=== PATIENT | female | born 1955 | race Caucasian/White ===

== ENCOUNTER → 2018-07-17 10:08 | Outpatient (CLI) | payer OTHER, SELFPAY ==
[2018-07-17 11:02] LABS: Hemoglobin A1c 6.3 % (4.2-6.3)
[2018-07-17 11:16] LABS: Progesterone Level 0.31 ng/mL (See Comment)
[2018-07-17 11:19] LABS: Estradiol < 11.0 pg/mL; T4 Free Direct 0.96 ng/dL (0.76-1.46); Thyroid Stim Hormone (TSH) 0.29 uIU/mL (0.358-3.74)
[2018-07-18 09:56] LABS: DHEA Sulfate 122.5 ug/dL (29.4-220.5)
--- OUTSIDE RECORDS SUMMARY | 2018-09-21 04:21 | XMS RPT_ITS ---
:1955 Author Organization OHIP Care Team Providers Name Role Phone Mikaela Waite Attending Unavailable JOSE FOY Attending Unavailable RELL ORTEGA (KEVIN) Referring Unavailable CHAVOVANNESSA (VIKTORIA) Attending Unavailable USANEGRITA Sheth (DANETTE) Attending Unavailable DARCIE VALENTINO Referring Unavailable VANNESSA TONY (VIKTORIA) Attending Unavailable DEANNA MARQUES Admitting Unavailable DEANNA MARQUES Attending Unavailable PROBLEMS PROBLEMS DATE TYPE CONDITION / CODE ATTENDING STATUS SOURCE 07/17/2018 Unknown N95.1 - Menopausal Mikaela Waite Active [place] and female Community climacteric states / Hospital N95.1(ICD-10) Repository 02/14/2018 Active Prediabetes / CHAVO, Active [facility] R73.03(ICD-10) VANNESSA () Clinic Main [place] Repository 02/21/2018 Active Elevated C-reactive CHAVO, Active [facility] protein (CRP) / VANNESSA () Clinic Main R79.82(ICD-10) [place] Repository 02/06/2018 Active Overweight / NA Active [facility] E66.3(ICD-10) Clinic Main [place] Repository 02/06/2018 Active Other fatigue / NA Active [facility] R53.83(ICD-10) [facility] Main [place] Repository 02/06/2018 Active Pain in unspecified NA Active [facility] joint / [facility] M25.50(ICD-10) [place] Repository 02/06/2018 Active Elevated NA Active [facility] blood-pressure [facility] Main reading, without [place] diagnosis of Repository hypertension / R03.0(ICD-10) 01/31/2018 Active Other abnormal CHAVO, Active [facility] glucose / VANNESSA () Clinic Main R73.09(ICD-10) [place] Repository 01/31/2018 Active Other specified CHAVO, Active [place] abnormal findings of VANNESSA () Clinic Main blood chemistry / [place] R79.89(ICD-10) Repository 12/21/2017 Active Dermatochalasis of LOCASTRO, Active [place] right upper eyelid / [facility] Other H02.831(ICD-10) [place] Repository 12/21/2017 Active Dermatochalasis of LOCASTRO, Active [place] left upper eyelid / [facility] Other H02.834(ICD-10) [place] Repository PROCEDURES PROCEDURES No Procedure Records FoundRESULTS RESULTS HEMOGLOBIN A1C Collected: 07/17/2018 Status: F Source: [place] 10:12 AM [facility] REPOSITORY TYPE CODE TESTS RESULT OUT OF RANGE REFERENCE UNITS LAB L501.9985 4.2-6.3 % Normal HGB A1C 6.3 Performed By: #### L501.9985 #### [facility] [address] [place], [place], [id number] TESTOSTERONE, SERUM TOTAL Collected: 07/17/2018 Status: F Source: [place] 10:12 AM [facility] REPOSITORY TYPE CODE TESTS RESULT OUT OF REFERENCE UNITS RANGE LAB L509.3000 ng/dL Testosterone Normal 14.38 Result Comment: NORMAL REFERENCE RANGES MALE AGE <50 123.06 - 813.86 ng/dL MALE AGE >50 89.98 - 780.10 ng/dL FEMALE PREMENOPAUSE AGE 21 - 60 9.01 - 47.94 ng/dL FEMALE POSTMENOPAUSE AGE 45 - 89 <7.00 - 45.62 ng/dL REFERENCE RANGE AND METHODOLOGY CHANGED 06/20/2017 Performed By: #### L509.3000, L509.4001, L509.6000 #### [facility] [address] [place], [place], [id number] PROGESTERONE LEVEL Collected: 07/17/2018 Status: F Source: [place] 10:12 AM [facility] REPOSITORY TYPE CODE TESTS RESULT OUT OF REFERENCE UNITS RANGE LAB L509.4001 See Comment ng/mL Progesterone Normal 0.31 Result Comment: Progesterone Reference Table: UNITS Female: Follicular 0.15 - 1.40 ng/mL Luteal 3.34 - 25.56 ng/mL Mid-luteal 4.44 - 28.03 ng/mL Postmenopausal 0.0 - 0.73 ng/mL : 1st Trimester 11.22 - 90.00 ng/mL 2nd Trimester 25.55 - 89.40 ng/mL 3rd Trimester 48.40 -422.50 ng/mL Performed By: #### L509.3000, L509.4001, L509.6000 #### [facility] [address] [place], [address] CORTISOL SERUM Collected: 07/17/2018 Status: F Source: [place] 10:12 AM [facility] REPOSITORY TYPE CODE TESTS RESULT OUT OF RANGE REFERENCE UNITS LAB L509.6000 3.09-22.40 ug/dL Normal CORTISOL 16.10 Result Comment: Adult (AM) 4.30 - 22.40 ug/dL Adult (PM) 3.09 - 16.66 ug/dL Performed By: #### L509.3000, L509.4001, L509.6000 #### [facility] [place], [address] FREE T3 Collected: 07/17/2018 Status: F Source: [place] 10:12 AM [facility] REPOSITORY TYPE CODE TESTS RESULT OUT OF RANGE REFERENCE UNITS LAB L501.74900 2.18-3.98 pg/mL Normal FREE T3 3.0 Performed By: #### L501.37729, L501.9520, L506.0400, L3300.1750 #### [facility] [address] [place], [address] THYROID STIM HORMONE Collected: 07/17/2018 Status: F Source: [place] (TSH) 10:12 AM [facility] REPOSITORY TYPE CODE TESTS RESULT OUT OF RANGE REFERENCE UNITS LAB L501.9520 0.358-3.74 uIU/mL Low TSH 0.29 Performed By: #### L501.33668, L501.9520, L506.0400, L3300.1750 #### [facility] [address] [place], [address] T4 FREE DIRECT Collected: 07/17/2018 Status: F Source: [place] 10:12 AM [facility] REPOSITORY TYPE CODE TESTS RESULT OUT OF RANGE REFERENCE UNITS LAB L506.0400 0.76-1.46 ng/dL Normal T4 FREE 0.96 DIRECT Performed By: #### L501.00726, L501.9520, L506.0400, L3300.1750 #### [facility] [address] [place], [place], [address] ESTRADIOL Collected: 07/17/2018 Status: F Source: [place] 10:12 AM [facility] REPOSITORY TYPE CODE TESTS RESULT OUT OF RANGE REFERENCE UNITS LAB L3300.1750 pg/mL Normal ESTRADIOL < 11.0 Result Comment: NORMAL REFERENCE RANGES FEMALE FOLLICULAR 21.4 - 164.8 pg/mL MID-CYCLE PEAK 49.9 - 367.2 pg/mL LUTEAL 40.2 - 259.0 pg/mL POST-MENOPAUSAL ON MHT <11.0 - 462.1 pg/mL NOT ON MHT <11.0 - 58.3 pg/mL MALE <11.0 - 52.5 pg/mL NOTE: [facility] HAS CONFIRMED THE DRUG FULVETRANT (FASLODEX) MAY CAUSE FALSELY ELEVATED ESTRADIOL RESULTS WHEN USING THIS TEST METHOD. IF PATIENT IS TAKING FULVESTRANT AN ALTERNATIVE METHOD SHOULD BE USED TO DETERMINE ESTRADIOL CONCENTRATION. Performed By: #### L501.33373, L501.9520, L506.0400, L3300.1750 #### [facility] [address] [place], [place], [address] DHEA SULFATE Collected: 07/17/2018 Status: F Source: [place] 10:12 AM [facility] REPOSITORY Order Comment: Has Patient had Radioactive Injection for X-ray?: N TYPE CODE TESTS RESULT OUT OF RANGE REFERENCE UNITS LAB L3300.1500 29.4-220.5 ug/dL Normal DHEA SULF 122.5 4020 Result Comment: Performed at: [facility] [id number] Assisted Sales Representative: Olu Moore PhD, Phone: [phone] Performed By: #### L3300.1500 #### [facility] (refer to report for specific site) refer to report for address and phone number OFFICE VISIT (INTERNAL Observed: 06/04/2018 Status: UNK Source: [facility]) 2:23 PM HOSPITALS REPOSITORY Chief Complaint Visit For: Other pt c/o dry cough, SOB. map History of Present Illness Vera Goodman is a 63 yo female who presents to the outpatient office today for evaluation of a nonproductive cough and shortness of breath. [place] automated prescription reporting service report was reviewed and the patient is compliant. The patient reports the development of upper respiratory symptoms beginning a few weeks ago including constant chest tightness, predominately non-productive cough and when productive productive of clear sputum, constant shortness of breath, nasal congestion with clear nasal discharge, post-nasal drip, and intermittent sneezing. She reports anosmia and angeusia over the past week. The patient reports n o other associated symptoms. She denies nausea, vomiting, diarrhea, and decreased appetite. The patient reports no other new complaints today. Review of Systems All systems have been reviewed and are normal except as previously noted. Active Problems Anxiety (300.00) (F41.9) Chest pain (786.50) (R07.9) Added by Problem List Migration; 2012-09-10; Moved to [facility] May 28 2013 9:08PM Cough (786.2) (R05) Left-sided weakness (728.87) (R53.1) Palpitations (785.1) (R00.2) Sinusitis (473.9) (J32.9) Tracheobronchitis (490) (J40) Allergies Amoxicillin TABS Recorded By: Phillip Vásquez; 05/26/2013 10:05:47 PM Current Meds LORazepam 0.5 MG Oral Tablet; TAKE 1 TABLET Daily prn; Therapy: 01Jul2013 to (Evaluate:05Jun2018) Requested for: 21May2018; Last Rx:21May2018 Ordered Rx By: Phillip Vásquez; Dispense: 15 Days ; #:15 Tablet; Refill: 0;For: Anxiety; ARJUN = N; Print Rx; Msg to Pharmacy: PT NEEDS OFFICE VISIT ZyrTEC Allergy 10 MG Oral Tablet; TAKE 1 TABLET AT BEDTIME; Therapy: 01Jul2013 to Recorded Rx By: Phillip Vásquez; Dispense: 0 Days ; #: Sufficient Tablet; Refill: 0; ARJUN = N; Record Vitals Vital Signs Recorded: [id number] 01:56PM [id number] lb 0.6 oz BMI Fntskmzaye36.41 BSA Calculated1.65 CA 68 bpm, left radial a., patient seated. BP 110/80 mm Hg, left arm, patient seated. Physical Exam Head - palpation revealed mild tenderness over the right maxillary sinus Nose - turbinates not erythematous or swollen, no septal deviation noted Mouth - posterior pharynx is not erythematous or swollen. Tonsillar pillars appeared normal no exudates Neck - no lymphadenopathy. Lungs - clear to auscultation bilaterally Cardiac - rate normal, rhythm regular, no murmurs, no JVD Musculoskeletal Chest- No erythema or swelling, full range of motion with no increase in patient's chest tightness or chest pain, palpation did not increase the patient's chest tightness and did not increase chest pain,; no increase in warmth. Diagnoses/Problems Cough (786.2) (R05) Orders Cough Renew: Benzonatate 100 MG Oral Capsule (Tesjames Navarro); TAKE 1 CAPSULE EVERY 6 HOURS NEEDED Rx By: Phillip Vásquez; Dispense: 8 Days ; #:30 Capsule; Refill: 1;For: Cough; ARJUN = N; Verified Transmission to [facility]; Last Updated By: [employer]; 06/04/2018 2:19:39 PM Renew: ProAir HFA 108 (90 Base) MCG/ACT Inhalation Aerosol Solution; INHALE 2 PUFFS EVERY 4 TO 6 HOURS NEEDED FOR SHORTNESS OF BREATH ORAS NEEDED Rx By: Phillip Vásquez; Dispense: 0 Days ; #:1 X 8.5 GM Inhaler; Refill: 1;For: Cough; ARJUN = N; Verified Transmission to [facility]; Last Updated By: [employer]; 06/04/2018 2:19:38 PM Sinusitis, Tracheobronchitis Renew: Doxycycline Monohydrate 100 MG Oral Tablet; TAKE 1 TABLET TWICE DAILY Rx By: Phillip Vásquez; Dispense: 10 Days ; #:20 Tablet; Refill: 0;For: Sinusitis, Tracheobronchitis; ARJUN = N; Verified Transmission to [facility]; Last Updated By: [employer]; 06/04/2018 2:19:39 PM Provider Impressions Constant chest tightness, constant shortness of breath-may be secondary to bronchospasm secondary to viral syndrome, sinusitis Predominantly nonproductive cough, nasal congestion, rhinorrhea, postnasal drip, intermittent sneezing-may be secondary to viral syndrome, sinusitis. Anosmia and and juicy a-may be secondary to viral syndrome, sinusitis. Plan Obtain pulse ox on room air today. If pulse ox is satisfactory, I will prescribe a pro-air HFA inhaler 2 puffs every 6 hours when necessary. I will start the patient on doxycycline at a dose of 100 mg by mouth twice a day 10 days. I asked the patient to begin use of Nasacort nasal spray 1 spray to each nostril twice a day when necessary which is to follow saline nasal spray 2 sprays to each nostril twice a day when necessary. I will prescribe Tessalon Perles to be used at a dose of 100 mg by mouth every 6 hours when necessary cough. Patient should call me in 10 days with her condition Patient Discussion/Summary By signing my name below, I, Rita Aiken, acting as a medical accountant, attest that this documentation has been prepared under the direction and in the presence of Dr. Vásquez. All medical record entries made by the scribe were at my direction and personally dictated by me. I have reviewed the chart and agree that the record accurately reflects my personal performance of the h istory, physical exam, discussion and plan. Dr. Phillip Vásquez. Signatures Electronically signed by : ARDEN Falk; Jun 04 2018 2:21PM EST (Co-author) Electronically signed by : Phillip Vásquez MD; Jun 04 2018 2:23PM EST (Author) JADE Observed: 02/21/2018 Status: COMPLETED Source: [place] 5:00 PM [facility] RE[facility]ITORY [facility] VERA GOODMAN ([id number]) 1955 F Date Time Provider Department 02/21/18 5:00 PM DARCIE VALENTINO During your visit today, we recorded the following information about you: Blood pressure Weight Height 104/60 64 kg 1.568 m Darcie Valentino DO 02/21/2018 7:54 PM Signed [facility] Shared medical appointment visit 4 CC: Vera Goodman is a 62 year old female with a PMH as stated below and a history of unhealthy eating patterns is here for the [facility] Life SMA. HPI: Vera is preparing food in advance and taking it to work along with healthy snacks. Not drinking as much coffee or alcohol. Eating less. Joint pain is still a problem. I feel better. She has stress at work- trying not to stress eat. Last 2 Encounter Wt Readings: Date: Wt: 02/21/2018 64 kg (141 lb 3.2 oz) 02/04/2018 65.6 kg (144 lb 9.6 oz) No changes in PMH and PSH since the previous visit except as stated in HPI. ALLERGIES Allergen Reactions - Codeine Rash, Itching - Penicillins Other: See Comments Makes patient feel very ill. - Percocet [Oxycodone* Other: See Comments - Sulfa (Sulfonamide * Vomiting - Tramadol Itching - Vicodin [Hydrocodon* Itching Current Outpatient Prescriptions: LORazepam (ATIVAN) 0.5 mg tab cetirizine (ZYRTEC) 10 mg tablet Take 10 mg by mouth daily at bedtime. No current facility-administered medications for this visit. No changes in FH. No changes in SH except as stated in HPI. ROS: Positive for bloating, joint pain (hands, wrists) Negative for chest pain, SOB, HAs PHYSICAL EXAM: Vitals: BP 104/60 Ht 156.8 cm (5' 1.75) Wt 64 kg (141 lb 3.2 oz) BMI 26.04 kg/m? Gen: Alert, in no apparent distress. Looks about stated age. Heart: Regular rate and rhythm without murmurs, rubs, or gallops. Lungs: Clear to auscultation. Extremities: No deformities Psych: Oriented x 3, normal affect LABS: Component Latest Ref Rng AND Units 02/06/2018 Cholesterol, Total <200 mg/dL 194 Triglyceride <150 mg/dL 68 HDL Cholesterol >39 mg/dL 76 LDL Cholesterol <100 mg/dL 104 (H) Non HDL Cholesterol <130 mg/dL 118 Fasting Time hrs 9 VLDL Cholesterol <30 mg/dL 14 TC:HDL Ratio <5.10 2.55 LDL:HDL Ratio <2.54 1.37 Hemoglobin A1C 4.3 - 5.6 % 5.9 (H) Estimated Average Glucose mg/dL 123 Insulin 1 - 24 uU/mL 5.3 UltraSens C-Reactive Protein <3.1 mg/L 5.6 (H) Vitamin D 25 Hydroxy 31.0 - 80.0 ng/mL 34.8 TSH 0.400 - 5.500 uU/mL 0.671 Vitamin B6, Plasma 20.0 - 125.0 nmol/L 95.8 Homocysteine, Serum <15.1 umol/L 7.1 Hemoglobin A1C (%) Date Value 02/06/2018 5.9 06/07/2013 5.7 ASSESSMENT and PLAN: Vera Goodman is a 62 year old female with a PMH of prediabetes and overweight who is here to address weight loss and develop a healthier relationship to food. During the next 6 weeks, Vera Goodman will work on the following goals: cut out sugar to improve arthritis in hands, cut out fast/fried/junk foods, cut out dairy. (R73.03) Prediabetes (primary encounter diagnosis) Comment: A1c increased since 2012 Plan: Limit added sweeteners and simple carbs. Recommended chromium picolinate 500 mcg daily. (R79.82) Elevated C-reactive protein (CRP) Plan: Limit pro-inflammatory foods such as saturated fat from meat and dairy, omega-6 enriched oils, and refined carbs. Avoid trans fat. Eat more anti-inflammatory foods as discussed. (E66.3) Overweight Comment: 3 lb weight loss in the past 2 weeks Plan: Start a probiotic and eat more fermented foods to improve gut health. (R79.89) Low vitamin D level Comment: goal level 40-60 Plan: Vit D3 4000 International Units daily (M25.50) Pain in joint, multiple sites Comment: hands, wrists - continuing Plan: Continue curcumin 500 mg BID for anti-inflammatory properties. Reduce added sweeteners. Lab results and recommendations reviewed with patient. DO Vannessa Zhao [facility] 03/06/2018 3:14 PM Signed I taught the mind/body portion of the [facility] Life SMA and guided the patient through the mind/body portion of the session. Patient was well engaged in the process. JORGE Alexander Referring Provider: SELF [200] Allergies As of Date: 02/21/2018 Noted Allergy Reaction CODEINE 01/10/2007 2 - Rash 9 - Itching PENICILLINS 07/09/2014 14 - Other: See Comments Comments: Makes patient feel very ill. PERCOCET (OXYCODONE-ACETAMINOPHEN)06/15/2015 14 - Other: See Comments SULFA (SULFONAMIDE ANTIBIOTICS) 06/08/2008 11 - Vomiting TRAMADOL 04/08/2015 9 - Itching VICODIN (HYDROCODONE-ACETAMINOPHE*06/08/2008 9 - Itching Date Reviewed: 02/21/2018 Reviewed by: Kareem Hardin - Fully Assessed Reason for Visit: Established Patient [175] Cmt: trim life week 4 Reason For Visit History Recorded Primary Visit Diagnosis:Prediabetes [R73.03] Other Visit Diagnoses:Elevated C-reactive protein (CRP) [R79.82] Overweight [E66.3] Low vitamin D level [R79.89] Pain in joint, multiple sites [M25.50] Prescriptions as of 02/21/2018 Sig: LORAZEPAM 0.5 MG TABLET CETIRIZINE 10 MG TABLET Take 10 mg by mouth daily at * Problem List As Of Date 02/21/2018 Noted Resolved ULNAR NERVE LESION [G56.20] INVALID FOR* INJURY ULNAR NERVE [S54.00XA] INVALID FOR* Hip pain [M25.559] INVALID FOR* 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] INVALID FOR* Trochanteric bursitis [M70.60] INVALID FOR* Shoulder pain [M25.519] INVALID FOR* Stiffness of joint, not elsewhere classified, *INVALID FOR*08/15/2013 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] INVALID FOR*08/15/2013 Pain of left upper extremity [M79.602] INVALID FOR* Dermatochalasis of both upper eyelids [H02.831,*INVALID FOR*12/21/2017 Prediabetes [R73.03] INVALID FOR* Encounter Status:Closed by DARCIE VALENTINO DO on 02/21/18 PROGRESS Observed: 02/21/2018 Status: COMPLETED Source: [place] 3:14 PM [facility] REPOSITORY HNO ID: [id number] Author: Vannessa Tony (Sw) Service: (none) Author Type: Cloth Layer Type: Progress Notes Filed: 03/06/2018 3:14 PM Note Text: I taught the mind/body portion of the [employer] Life SMA and guided the patient through the mind/body portion of the session. Patient was well engaged in the process. Laurence Tony [facility] PROGRESS Observed: 02/20/2018 Status: COMPLETED Source: [place] 1:31 PM [facility] REPOSITORY HNO ID: [id number] Author: Darcie Valentino Service: (none) Author Type: Physician Type: Progress Notes Filed: 02/21/2018 7:54 PM Note Text: [facility] Shared medical appointment visit 4 CC: Vera Goodman is a 62 year old female with a PMH as stated below and a history of unhealthy eating patterns is here for the [employer] SMA. HPI: Vera is preparing food in advance and taking it to work along with healthy snacks. Not drinking as much coffee or alcohol. Eating less. Joint pain is still a problem. I feel better. She has stress at work- trying not to stress eat. Last 2 Encounter Wt Readings: Date: Wt: 02/21/2018 64 kg (141 lb 3.2 oz) 02/04/2018 65.6 kg (144 lb 9.6 oz) No changes in PMH and PSH since the previous visit except as stated in HPI. ALLERGIES Allergen Reactions - Codeine Rash, Itching - Penicillins Other: See Comments Makes patient feel very ill. - Percocet [Oxycodone* Other: See Comments - Sulfa (Sulfonamide * Vomiting - Tramadol Itching - Vicodin [Hydrocodon* Itching Current Outpatient Prescriptions: LORazepam (ATIVAN) 0.5 mg tab cetirizine (ZYRTEC) 10 mg tablet Take 10 mg by mouth daily at bedtime. No current facility-administered medications for this visit. No changes in FH. No changes in SH except as stated in HPI. ROS: Positive for bloating, joint pain (hands, wrists) Negative for chest pain, SOB, HAs PHYSICAL EXAM: Vitals: BP 104/60 Ht 156.8 cm (5' 1.75) Wt 64 kg (141 lb 3.2 oz) BMI 26.04 kg/m? Gen: Alert, in no apparent distress. Looks about stated age. Heart: Regular rate and rhythm without murmurs, rubs, or gallops. Lungs: Clear to auscultation. Extremities: No deformities Psych: Oriented x 3, normal affect LABS: Component Latest Ref Rng AND Units 02/06/2018 Cholesterol, Total <200 mg/dL 194 Triglyceride <150 mg/dL 68 HDL Cholesterol >39 mg/dL 76 LDL Cholesterol <100 mg/dL 104 (H) Non HDL Cholesterol <130 mg/dL 118 Fasting Time hrs 9 VLDL Cholesterol <30 mg/dL 14 TC:HDL Ratio <5.10 2.55 LDL:HDL Ratio <2.54 1.37 Hemoglobin A1C 4.3 - 5.6 % 5.9 (H) Estimated Average Glucose mg/dL 123 Insulin 1 - 24 uU/mL 5.3 UltraSens C-Reactive Protein <3.1 mg/L 5.6 (H) Vitamin D 25 Hydroxy 31.0 - 80.0 ng/mL 34.8 TSH 0.400 - 5.500 uU/mL 0.671 Vitamin B6, Plasma 20.0 - 125.0 nmol/L 95.8 Homocysteine, Serum <15.1 umol/L 7.1 Hemoglobin A1C (%) Date Value 02/06/2018 5.9 06/07/2013 5.7 ASSESSMENT and PLAN: Vera Goodman is a 62 year old female with a PMH of prediabetes and overweight who is here to address weight loss and develop a healthier relationship to food. During the next 6 weeks, Vera Goodman will work on the following goals: cut out sugar to improve arthritis in hands, cut out fast/fried/junk foods, cut out dairy. (R73.03) Prediabetes (primary encounter diagnosis) Comment: A1c increased since 2012 Plan: Limit added sweeteners and simple carbs. Recommended chromium picolinate 500 mcg daily. (R79.82) Elevated C-reactive protein (CRP) Plan: Limit pro-inflammatory foods such as saturated fat from meat and dairy, omega-6 enriched oils, and refined carbs. Avoid trans fat. Eat more anti-inflammatory foods as discussed. (E66.3) Overweight Comment: 3 lb weight loss in the past 2 weeks Plan: Start a probiotic and eat more fermented foods to improve gut health. (R79.89) Low vitamin D level Comment: goal level 40-60 Plan: Vit D3 4000 International Units daily (M25.50) Pain in joint, multiple sites Comment: hands, wrists - continuing Plan: Continue curcumin 500 mg BID for anti-inflammatory properties. Reduce added sweeteners. Lab results and recommendations reviewed with patient. Darcie Valentino DO PROGRESS Observed: 02/14/2018 Status: COMPLETED Source: [place] 6:25 PM [facility] REPOSITORY HNO ID: [id number] Author: Vannessa Tony (Sw) Service: (none) Author Type: Cloth Layer Type: Progress Notes Filed: 02/14/2018 6:25 PM Note Text: I taught the mind/body portion of the [employer] Life SMA and guided the patient through the mind/body portion of the session. Patient was well engaged in the process. Laurence Tony [facility] COMP METABOLIC PANEL Collected: 02/06/2018 Status: F Source: [place] 7:05 AM [facility] REPOSITORY TYPE CODE TESTS RESULT OUT OF REFERENCE UNITS RANGE LAB TP 6.3-8.0 g/dL Protein, Total 7.1 LAB ALB 3.9-4.9 g/dL Albumin 4.3 LAB CA 8.5-10.2 mg/dL Calcium, Total 9.0 LAB TBIL 0.2-1.3 mg/dL Bilirubin, Total 0.6 LAB ALKP 32-117 U/L Alkaline Phosphatase 73 LAB AST 13-35 U/L AST 19 LAB GLU 74-99 mg/dL Glucose 91 Result Comment: The [place] [employer] (ADA) provides guidance for cutoff values for fasting glucose and random glucose. The ADA defines fasting as no caloric intake for at least 8 hours. Fas ting plasma glucose results between 100 to 125 mg/dL indicate increased risk for diabetes (prediabetes). Fasting plasma glucose results greater than or equal to 126 mg/dL meet the criteria for diagnosis of diabetes. In the absence of unequivocal hyperglycemia, results should be confirmed by repeat testing. In a patient with classic symptoms of hyperglycemia or hyperglycemic crisis, random plasma glucose results greater than or equal to 200 mg/dL meet the criteria for diagnosis of diabetes. Reference: Standards of Medical Care in Diabetes 2016, [place] [employer] Association. Diabetes Care. 2016.39(Suppl 1). LAB BUN 7-21 mg/dL BUN 16 LAB CRET 0.58-0.96 mg/dL Creatinine 0.77 LAB NA 136-144 mmol/L Sodium 141 LAB K 3.7-5.1 mmol/L Potassium 4.0 LAB CL 97-105 mmol/L Chloride 102 LAB CO2 22-30 mmol/L CO2 26 LAB AGAP 9-18 mmol/L Anion Gap 13 LAB ALT 7-38 U/L ALT 14 LAB GFRAA eGFR- Amer. >60 LAB GFRNAA . eGFR-All Other Races >60 Result Comment: eGFR (Estimated GFR) Units of measure: mL/min/1.73 meters squared eGFR is derived from the reexpressed MDRD Study equation using the following parameters: serum creatinine, age, gender and race. The creatinine assay has been calibrated to be traceable to IDMS. An eGFR <60 mL/min/1.73m2 for >3 months is consistent with chronic kidney disease. Refer to KDOQI guidelines for clinical interpretation. In patients with unstable renal function, e.g. those with acute kidney injury, the eGFR may not accurately reflect actual GFR. Performed By: #### CMP #### [facility] [address] [place] [address] #### HBA1C, HSCRP, HOMCYS, TSH, INSULN, VITD #### [place] [id number] [place] [phone] #### LIPB #### [facility] [address] [place], [place] [address] [place] [phone] #### VITB6 #### [facility] [address] [place] [address] [phone] HEMOGLOBIN A1C Collected: 02/06/2018 Status: F Source: [place] 7:05 AM [facility] REPOSITORY TYPE CODE TESTS RESULT OUT OF REFERENCE UNITS RANGE LAB HGBA1C 4.3-5.6 % High Hemoglobin A1c 5.9 LAB HBA0 mg/dL Est. Average Glucose 123 Result Comment: eAG: (Estimated average glucose) is a calculated value from HgbA1c and is account services representative of the average blood glucose level in the last 2-3 month period. Performed By: #### CMP #### [facility] [address] [place], [place] [address] #### HBA1C, HSCRP, HOMCYS, TSH, INSULN, VITD #### [facility] [address] [place], [place] [address] #### LIPB #### [facility] [address] [place], [place] [address] #### VITB6 #### [facility] [address] [place] [address] [phone] ULTRA-SENSITIVE CRP Collected: 02/06/2018 Status: F Source: [place] 7:05 AM [facility] REPOSITORY TYPE CODE TESTS RESULT OUT OF REFERENCE UNITS RANGE LAB CRPUS <3.1 mg/L High UltraSens 5.6 C-ReacProt Result Comment: (NOTE) hsCRP < 1.0 mg/L, relative risk is low hsCRP 1.0-3.0 mg/L, relative risk is average hsCRP > 3.0 mg/L, relative risk is high Reference: Deborah TA, Ariana GA, Juan R RW, et al. Markers of Inflammation and Cardiovascular Disease. Application to Clinical and Public Health Practice. A Statement for Healthcare Professionals From the Centers for Disease Control and Prevention and the [place] [employer]. Circulation 2003;107:499-511. Performed By: #### CMP #### [facility] [address] [place] [address] #### HBA1C, HSCRP, HOMCYS, TSH, INSULN, VITD #### [facility] [place] [phone] #### LIPB #### [facility] [address] [place], [place] [address] #### VITB6 #### [facility] [address] [place] [address] [phone] LIPID PANEL, BASIC Collected: 02/06/2018 Status: F Source: [place] 7:05 AM [facility] REPOSITORY TYPE CODE TESTS RESULT OUT OF REFERENCE UNITS RANGE LAB CHOL <200 mg/dL Cholesterol 194 Result Comment: <200 mg/dL, Desirable 200-239 mg/dL, Borderline high >239 mg/dL, High LAB TRIGLY <150 mg/dL Triglyceride 68 Result Comment: <150 mg/dL, Normal 150-199 mg/dL, Borderline high 200-499 mg/dL, High >499 mg/dL, Very high LAB HDL >39 mg/dL HDL-Cholesterol 76 Result Comment: 40-59 mg/dL, Acceptable >59 mg/dL, High: Negative risk factor for coronary heart disease <40 mg/dL, Low: Positive risk factor for coronary heart disease LAB LDL <100 mg/dL LDL-Cholesterol High 104 Result Comment: <100 mg/dL, Optimal 100-129 mg/dL, Near optimal/above optimal 130-159 mg/dL, Borderline high 160-189 mg/dL, High >189 mg/dL, Very high Secondary prevention optimal LDL Cholesterol levels are recommended to be < 70 mg/dL LAB NONHDL <130 mg/dL Non HDL Cholesterol 118 Result Comment: <130 mg/dL, Optimal 130-159 mg/dL, Near optimal/above optimal 160-189 mg/dL, Borderline high 190-219 mg/dL, High >219 mg/dL, Very high Secondary prevention optimal non HDL Cholesterol levels are recommended to be < 100 mg/dL LAB FT hrs Fasting Time 9 LAB VLDL <30 mg/dL VLDL Cholesterol 14 LAB TCHDL <5.10 TC:HDL Ratio 2.55 LAB LDLHDL <2.54 LDL:HDL Ratio 1.37 Result Comment: Reference: 1. National Cholesterol Education Program ATP III Guideline At-A-Glance Quick Desk Reference: National Heart, Lung, and Blood [place]. National Institutes of Health. 2001: NIH Publication No. 01-3305. 2. An International Atherosclerosis Society position paper: global recommendations for the management of dyslipidemia: executive summary, Atherosclerosis. 2014: 232(2):410-413. Performed By: #### CMP #### [facility] [address] [place] [address] #### HBA1C, HSCRP, HOMCYS, TSH, INSULN, VITD #### [facility] [address] [place] [address] #### LIPB #### [facility] [address] [place] [address] [place] [phone] #### VITB6 #### [facility] [address] [place] [address] [phone] HOMOCYSTEINE Collected: 02/06/2018 Status: F Source: [place] 7:05 AM [facility] REPOSITORY TYPE CODE TESTS RESULT OUT OF REFERENCE UNITS RANGE LAB HOMCYS <15.1 umol/L Homocysteine 7.1 Performed By: #### CMP #### [facility] [address] [place] [address] #### HBA1C, HSCRP, HOMCYS, TSH, INSULN, VITD #### [place] [phone] #### LIPB #### [address] [place] [phone] #### VITB6 #### [facility] [address] [place] [address] [phone] TSH Collected: 02/06/2018 Status: F Source: [place] 7:05 AM [facility] REPOSITORY TYPE CODE TESTS RESULT OUT OF RANGE REFERENCE UNITS LAB TSH 0.400-5.500 uU/mL TSH 0.671 Performed By: #### CMP #### [facility] [address] [place] [address] #### HBA1C, HSCRP, HOMCYS, TSH, INSULN, VITD #### [place] [phone] #### LIPB #### [facility] [address] [place], [place] [address] [place] [phone] #### VITB6 #### [facility] [address] [place] [address] [phone] INSULIN Collected: 02/06/2018 Status: F Source: [place] 7:05 AM [facility] REPOSITORY TYPE CODE TESTS RESULT OUT OF REFERENCE UNITS RANGE LAB INSULN 1-24 uU/mL Insulin 5.3 Performed By: #### CMP #### [facility] [address] [place], [place] [address] #### HBA1C, HSCRP, HOMCYS, TSH, INSULN, VITD #### [place] [phone] #### LIPB #### [place] [phone] [place] [phone] #### VITB6 #### [address] [address] [phone] VITAMIN D 25 HYDROXY Collected: 02/06/2018 Status: F Source: [place] 7:05 AM [facility] REPOSITORY TYPE CODE TESTS RESULT OUT OF REFERENCE UNITS RANGE LAB VITD 31.0-80.0 ng/mL Vitamin D 25 34.8 Hydroxy Result Comment: Classification of 25 OH Vitamin D status: Insufficiency/Moderate Deficiency: < or = 30 ng/mL Sufficiency/Optimal Levels: 31 to 80 ng/mL Toxicity: > 100 ng/mL Test performed by chemiluminescent immunoassay. Performed By: #### CMP #### [place] [address] #### HBA1C, HSCRP, HOMCYS, TSH, INSULN, VITD #### [place] [phone] #### LIPB #### [place] [address] [place] [phone] #### VITB6 #### [facility] [address] [place] [address] [phone] VITAMIN B6 PLASMA Collected: 02/06/2018 Status: F Source: [place] 7:05 AM [facility] REPOSITORY TYPE CODE TESTS RESULT OUT OF REFERENCE UNITS RANGE LAB VITB6 20.0-125.0 nmol/L Vitamin B6 95.8 Plasma Result Comment: (NOTE) INTERPRETIVE INFORMATION: Vitamin B6 (Pyridoxal 5-Phosphate) Pyridoxal 5'-phosphate measured in a specimen collected following an 8-hour or overnight fast accurately indicates vitamin B6 nutritional status. Non-fasting specimen concentration reflects recent vitamin intake. Test developed and characteristics determined by [facility]. See Compliance Statement B: [facility]/ Performed by [facility], [address] [place] [address] [email or web address], Neptali Covington MD, Lab. Director Performed By: #### CMP #### [place] [address] #### HBA1C, HSCRP, HOMCYS, TSH, INSULN, VITD #### [facility] [address] [place] [address] #### LIPB #### [address] [place] [address] #### VITB6 #### [facility] [address] [place] [address] [phone] CNOV Observed: 02/04/2018 Status: COMPLETED Source: [place] 5:00 PM [facility] REPOSITORY Office Visit (VISHAL) VERA GOODMAN ([id number]) 1955 F Date Time Provider Department 02/04/18 5:00 PM DARCIE VALENTINO During your visit today, we recorded the following information about you: Blood pressure Weight Height 112/66 65.6 kg 1.568 m Darcie Valentino DO 02/04/2018 8:24 PM [facility] Shared medical appointment visit 2 CC: Vera Juana Goodman is a 62 year old female with a PMH as stated below and a history of unhealthy eating patterns is here for the Tr[employer] Life SMA. HPI: Vera extinguished chocolate and pastries and didn't have any this week. She replaced unhealthy foods at home with healthier foods from [employer]. Her challenge is to prepare foods in advance. The CDs are helping her. She got a lot of insight into early eating behaviors from the book. Yoga is helping her to relax. She is eating more slowly and mindfully. Last 2 Encounter Wt Readings: Date: Wt: 02/04/2018 65.6 kg (144 lb 9.6 oz) 01/31/2018 65.9 kg (145 lb 3.2 oz) No changes in PMH and PSH since the previous visit except as stated in HPI. ALLERGIES Allergen Reactions - Codeine Rash, Itching - Penicillins Other: See Comments Makes patient feel very ill. - Percocet [Oxycodone* Other: See Comments - Sulfa (Sulfonamide * Vomiting - Tramadol Itching - Vicodin [Hydrocodon* Itching Current Outpatient Prescriptions: LORazepam (ATIVAN) 0.5 mg tab cetirizine (ZYRTEC) 10 mg tablet Take 10 mg by mouth daily at bedtime. No current facility-administered medications for this visit. No changes in FH. No changes in SH except as stated in HPI. ROS: Positive for brain fog, sleep issues, anxiety, high stress levels Negative for chest pain, SOB, HAs PHYSICAL EXAM: Vitals: BP 112/66 Ht 156.8 cm (5' 1.75) Wt 65.6 kg (144 lb 9.6 oz) BMI 26.66 kg/m? Gen: Alert, in no apparent distress. Looks about stated age. Heart: Regular rate and rhythm without murmurs, rubs, or gallops. Lungs: Clear to auscultation. Extremities: No deformities Psych: Oriented x 3, normal affect LABS: ASSESSMENT and PLAN: Vera Goodman is a 62 year old female with a PMH of overweight who is here to address weight loss and develop a healthier relationship to food. During the next 6 weeks, Vera Goodman will work on the following goals: cut out sugar to improve arthritis in hands, cut out fast/fried/junk foods, cut out dairy. (F41.9) Anxiety (primary encounter diagnosis) Plan: Instead of Ativan, use the 3 deep breaths, yoga DVD and meditation CDs to calm anxious thoughts. (E66.3) Overweight Comment: 1 lb weight loss in past 4 days Plan: Add in more anti-inflammatory foods as discussed including fruits, vegetables, nuts, seeds, herbs and spices, and omega-3 enriched fats. Get labs drawn before the next visit. Darcie Valentino DO I taught the mind/body portion of the Trim Life SMA and guided the patient through the mind/body portion of the session. Patient was well engaged in the process. DANETTE Duncan-Monster February 07, 2018 2:13 PM Referring Provider: SELF [200] Allergies As of Date: 02/04/2018 Noted Allergy Reaction CODEINE 01/10/2007 2 - Rash 9 - Itching PENICILLINS 07/09/2014 14 - Other: See Comments Comments: Makes patient feel very ill. PERCOCET (OXYCODONE-ACETAMINOPHEN)06/15/2015 14 - Other: See Comments SULFA (SULFONAMIDE ANTIBIOTICS) 06/08/2008 11 - Vomiting TRAMADOL 04/08/2015 9 - Itching VICODIN (HYDROCODONE-ACETAMINOPHE*06/08/2008 9 - Itching Date Reviewed: 02/04/2018 Reviewed by: Kareem Hardin - Fully Assessed Reason for Visit: Established Patient [175] Cmt: trim life week 2 Primary Visit Diagnosis:Anxiety [F41.9] Other Visit Diagnosis:Overweight [E66.3] Prescriptions as of 02/04/2018 Sig: LORAZEPAM 0.5 MG TABLET CETIRIZINE 10 MG TABLET Take 10 mg by mouth daily at * Problem List As Of Date 02/04/2018 Noted Resolved ULNAR NERVE LESION [G56.20] INVALID FOR* INJURY ULNAR NERVE [S54.00XA] INVALID FOR* Hip pain [M25.559] INVALID FOR* 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] INVALID FOR* Trochanteric bursitis [M70.60] INVALID FOR* Shoulder pain [M25.519] INVALID FOR* Stiffness of joint, not elsewhere classified, *INVALID FOR*08/15/2013 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] INVALID FOR*08/15/2013 Pain of left upper extremity [M79.602] INVALID FOR* Dermatochalasis of both upper eyelids [H02.831,*INVALID FOR*12/21/2017 Encounter Status:Closed by DARCIE VALENTINO DO on 02/04/18 PROGRESS Observed: 02/01/2018 Status: COMPLETED Source: [place] 10:17 AM [facility] REPOSITORY O ID: [id number] Author: Darcie Valentino Service: (none) Author Type: Physician Type: Progress Notes Filed: 02/07/2018 2:13 PM Note Text: [place] [facility] Shared medical appointment visit 2 CC: Vera Goodman is a 62 year old female with a PMH as stated below and a history of unhealthy eating patterns is here for the [facility] Life SMA. HPI: Vera extinguished chocolate and pastries and didn't have any this week. She replaced unhealthy foods at home with healthier foods from [employer]. Her challenge is to prepare foods in advance. The CDs are helping her. She got a lot of insight into early eating behaviors from the book. Yoga is helping her to relax. She is eating more slowly and mindfully. Last 2 Encounter Wt Readings: Date: Wt: 02/04/2018 65.6 kg (144 lb 9.6 oz) 01/31/2018 65.9 kg (145 lb 3.2 oz) No changes in PMH and PSH since the previous visit except as stated in HPI. ALLERGIES Allergen Reactions - Codeine Rash, Itching - Penicillins Other: See Comments Makes patient feel very ill. - Percocet [Oxycodone* Other: See Comments - Sulfa (Sulfonamide * Vomiting - Tramadol Itching - Vicodin [Hydrocodon* Itching Current Outpatient Prescriptions: LORazepam (ATIVAN) 0.5 mg tab cetirizine (ZYRTEC) 10 mg tablet Take 10 mg by mouth daily at bedtime. No current facility-administered medications for this visit. No changes in FH. No changes in SH except as stated in HPI. ROS: Positive for brain fog, sleep issues, anxiety, high stress levels Negative for chest pain, SOB, HAs PHYSICAL EXAM: Vitals: BP 112/66 Ht 156.8 cm (5' 1.75) Wt 65.6 kg (144 lb 9.6 oz) BMI 26.66 kg/m? Gen: Alert, in no apparent distress. Looks about stated age. Heart: Regular rate and rhythm without murmurs, rubs, or gallops. Lungs: Clear to auscultation. Extremities: No deformities Psych: Oriented x 3, normal affect LABS: ASSESSMENT and PLAN: Vera Goodman is a 62 year old female with a PMH of overweight who is here to address weight loss and develop a healthier relationship to food. During the next 6 weeks, Vera Goodman will work on the following goals: cut out sugar to improve arthritis in hands, cut out fast/fried/junk foods, cut out dairy. (F41.9) Anxiety (primary encounter diagnosis) Plan: Instead of Ativan, use the 3 deep breaths, yoga DVD and meditation CDs to calm anxious thoughts. (E66.3) Overweight Comment: 1 lb weight loss in past 4 days Plan: Add in more anti-inflammatory foods as discussed including fruits, vegetables, nuts, seeds, herbs and spices, and omega-3 enriched fats. Get labs drawn before the next visit. Darcie Valentino DO I taught the mind/body portion of the [employer] Life SMA and guided the patient through the mind/body portion of the session. Patient was well engaged in the process. PATRICK Duncan February 07, 2018 2:13 PM CNOV Observed: 01/31/2018 Status: COMPLETED Source: [place] 5:00 PM [facility] REPOSITORY Office Visit (VISHAL) VERA GOODMAN ([id number]) 1955 F Date Time Provider Department 01/31/18 5:00 PM DARCIE VALENTINO During your visit today, we recorded the following information about you: Blood pressure Weight Height 138/70 65.9 kg 1.568 m Darcie Valentino DO 01/31/2018 8:18 PM Signed [facility] Shared medical appointment visit 1 CC: Vera Goodman is a 62 year old female with a PMH as stated below and a history of unhealthy eating patterns who presents for the [employer] Life SMA. HPI: Vera has a lot of stress in her life. 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 She has gained and lost a lot of weight. Her goal is to lose weight by changing her mindset around food. She wants to cut out sugar to improve arthritis in her hands. Goals: cut out sugar, cut out fast/fried/junk foods, cut out dairy. Last 3 Encounter BP Readings: Date: BP: 01/31/2018 138/70 11/27/2017 102/63 05/29/2016 127/61 Lifestyle history: Nonsmoker # sodas/day: 0 # cups of coffee/day: 1-2 # alcoholic drinks/week: 3 +Addiction to sugar No h/o substance abuse PAST MEDICAL HISTORY Diagnosis Date - Anxiety state, unspecified occasional PAST SURGICAL HISTORY Procedure Laterality Date - APPENDECTOMY with hysterectomy - DELIVERY ONLY , low cervical x3 - PAST SURGICAL HISTORY OF 2006 left elbow surgery for ulnar neuropathy - PAST SURGICAL HISTORY OF 2007 excision of benign right breast lesion - REMOVAL OF TONSILS,<12 Y/O childhood Tonsillectomy - SEPTOPLASTY by patient's description - SINUS SURGERY PROC UNLISTED - TOTAL ABDOM HYSTERECTOMY 2004 Hysterectomy, DARRELL Current Outpatient Prescriptions on File Prior to Visit: cetirizine (ZYRTEC) 10 mg tablet Take 10 mg by mouth daily at bedtime. amoxicillin (AMOXIL) 875 mg tablet Take 1 tablet by mouth every 12 hours. ondansetron orally disintegrating (ZOFRAN ODT) 4 mg disintegrating tablet Take 1 tablet by mouth every 8 hours as needed. No current facility-administered medications on file prior to visit. Social History Marital status: Unknown Spouse name: Years of education: Number of children: Social History Main Topics Smoking status: Former Smoker Packs/day: 0.00 Years: 5.00 Types: Cigarettes Quit date: 05/29/1980 Smokeless tobacco: Never Used Comment: Didn't smoke much Alcohol use: Yes 1.5 oz/week Cans of Beer (12oz): 1 per week Drug use: No ROS: Positive for fatigue, SOB, acid reflux, gas, bloating, joint pain (hands, wrists, elbows, knees), brain fog, sleep issues, depression, anxiety, binge eating, high stress levels Negative for chest pain, HAs PHYSICAL EXAM: Vitals: BP 138/70 Ht 156.8 cm (5' 1.75) Wt 65.9 kg (145 lb 3.2 oz) BMI 26.77 kg/m? Gen: Alert, in no apparent distress. Looks about stated age. Heart: Regular rate and rhythm without murmurs, rubs, or gallops. Lungs: Clear to auscultation. Extremities: No deformities Psych: Oriented x 3, normal affect LABS: Component Latest Ref Rng AND Units 06/07/2013 09/04/2015 01/21/2016 Triglyceride 30 - 149 mg/dL 71 Cholesterol, Total 100 - 199 mg/dL 178 HDL Cholesterol >55 mg/dL 73 VLDL Cholesterol 6 - 40 mg/dL 14 LDL Cholesterol 60 - 129 mg/dL 91 Fasting Time hrs 0 TC:HDL Ratio 1.00 - 5.00 2.44 LDL:HDL Ratio 0.50 - 3.55 1.25 Non HDL Cholesterol 90 - 159 mg/dL 105 Hemoglobin A1C 4.0 - 6.0 % 5.7 Estimated Average Glucose mg/dL 117 Insulin 1 - 24 uU/mL 9.8 Vitamin B12 221 - 700 pg/mL 337 CRP 0.0 - 1.0 mg/dL 0.3 TSH 0.400 - 5.500 uU/mL 0.365 (L) Vitamin D 25 Hydroxy 31.0 - 80.0 ng/mL 36.6 ASSESSMENT and PLAN: Vera Goodman is a 62 year old female with a PMH of overweight who is here to address weight loss and develop a healthier relationship to food. During the next 6 weeks, Vera Goodman will work on the following goals: cut out sugar to improve arthritis in hands, cut out fast/fried/junk foods, cut out dairy. (R73.09) Impaired glucose metabolism (primary encounter diagnosis) Plan: HGB A1C, INSULIN ASSAY BLOOD, LIPID PANEL BASIC, COMP METABOLIC PANEL, C-REACTIVE ULTRA SEN, VITAMIN D 25 HYDROXY, TSH BLD, VITAMIN B6/PYRIDOXIN, HOMOCYSTEINE, LORazepam (ATIVAN) 0.5 mg tab (R79.89) Low TSH level Plan: HGB A1C, INSULIN ASSAY BLOOD, LIPID PANEL BASIC, COMP METABOLIC PANEL, C-REACTIVE ULTRA SEN, VITAMIN D 25 HYDROXY, TSH BLD, VITAMIN B6/PYRIDOXIN, HOMOCYSTEINE, LORazepam (ATIVAN) 0.5 mg tab No dx of hyperthyroidism. Repeat TSH. (E66.3) Overweight Comment: BMI 26 Plan: HGB A1C, INSULIN ASSAY BLOOD, LIPID PANEL BASIC, COMP METABOLIC PANEL, C-REACTIVE ULTRA SEN, VITAMIN D 25 HYDROXY, TSH BLD, VITAMIN B6/PYRIDOXIN, HOMOCYSTEINE, LORazepam (ATIVAN) 0.5 mg tab Start with 3 deep breaths before meals to slow down and eat mindfully. 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 (R53.83) Fatigue, unspecified type Plan: HGB A1C, INSULIN ASSAY BLOOD, LIPID PANEL BASIC, COMP METABOLIC PANEL, C-REACTIVE ULTRA SEN, VITAMIN D 25 HYDROXY, TSH BLD, VITAMIN B6/PYRIDOXIN, HOMOCYSTEINE, LORazepam (ATIVAN) 0.5 mg tab Check for vit deficiencies (M25.50) Polyarthralgia Plan: HGB A1C, INSULIN ASSAY BLOOD, LIPID PANEL BASIC, COMP METABOLIC PANEL, C-REACTIVE ULTRA SEN, VITAMIN D 25 HYDROXY, TSH BLD, VITAMIN B6/PYRIDOXIN, HOMOCYSTEINE, LORazepam (ATIVAN) 0.5 mg tab (R03.0) Prehypertension Comment: BP goal <120/80 Plan: HGB A1C, INSULIN ASSAY BLOOD, LIPID PANEL BASIC, COMP METABOLIC PANEL, C-REACTIVE ULTRA SEN, VITAMIN D 25 HYDROXY, TSH BLD, VITAMIN B6/PYRIDOXIN, HOMOCYSTEINE, LORazepam (ATIVAN) 0.5 mg tab Add hibiscus tea to smoothie recipe. Chart reviewed and labs ordered. DO Vannessa Zhao LPCC 02/14/2018 6:25 PM Signed I taught the mind/body portion of the [employer] SMA and guided the patient through the mind/body portion of the session. Patient was well engaged in the process. JORGE Alexander Referring Provider: SELF [200] Allergies As of Date: 01/31/2018 Noted Allergy Reaction CODEINE 01/10/2007 2 - Rash 9 - Itching PENICILLINS 07/09/2014 14 - Other: See Comments Comments: Makes patient feel very ill. PERCOCET (OXYCODONE-ACETAMINOPHEN)06/15/2015 14 - Other: See Comments SULFA (SULFONAMIDE ANTIBIOTICS) 06/08/2008 11 - Vomiting TRAMADOL 04/08/2015 9 - Itching VICODIN (HYDROCODONE-ACETAMINOPHE*06/08/2008 9 - Itching Date Reviewed: 01/31/2018 Reviewed by: Kareem Hardin - Fully Assessed Reason for Visit: New Patient [172] Cmt: trim life week 1 Primary Visit Diagnosis:Impaired glucose metabolism [R73.09] Other Visit Diagnoses:Low TSH level [R79.89] Overweight [E66.3] Fatigue, unspecified type [R53.83] Polyarthralgia [M25.50] Prehypertension [R03.0] Order(s):HGB A1C [VRPOS8E] Order #: [id number] FUTURE INSULIN ASSAY BLOOD [SQINSULN] Order #: [id number] FUTURE LIPID PANEL BASIC [SQLIPB] Order #: [id number] FUTURE COMP METABOLIC PANEL [SQCMP] Order #: [id number] FUTURE C-REACTIVE ULTRA SEN [SQHSCRP] Order #: [id number] FUTURE VITAMIN D 25 HYDROXY [SQVITD] Order #: [id number] FUTURE TSH BLD [SQTSH] Order #: [id number] FUTURE VITAMIN B6/PYRIDOXIN [SQVITB6] Order #: [id number] FUTURE HOMOCYSTEINE [SQHOMCYS] Order #: [id number] FUTURE Prescriptions as of 01/31/2018 Sig: CETIRIZINE 10 MG TABLET Take 10 mg by mouth daily at * LORAZEPAM 0.5 MG TABLET Problem List As Of Date 01/31/2018 Noted Resolved ULNAR NERVE LESION [G56.20] INVALID FOR* INJURY ULNAR NERVE [S54.00XA] INVALID FOR* Hip pain [M25.559] INVALID FOR* 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 Disc: Reason for discontinue is not on file. amoxicillin (AMOXIL) 875 mg tablet 20 t* 0 06/01/2017 01/31/2018 Route: ORAL Sig: Take 1 tablet by mouth every 12 hours. Disc: Reason for discontinue is not on file. Encounter Status:Closed by DARCIE VALENTINO DO on 01/31/18 PROGRESS Observed: 01/30/2018 Status: COMPLETED Source: [place] 6:28 PM [facility] REPOSITORY HNO ID: [id number] Author: Darcie Valentino Service: (none) Author Type: Physician Type: Progress Notes Filed: 01/31/2018 8:18 PM Note Text: [facility] [place] [facility] Shared medical appointment visit 1 CC: Vera Goodman is a 62 year old female with a PMH as stated below and a history of unhealthy eating patterns who presents for the [facility]. HPI: Vera has a lot of stress in her life. 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 She has gained and lost a lot of weight. Her goal is to lose weight by changing her mindset around food. She wants to cut out sugar to improve arthritis in her hands. Goals: cut out sugar, cut out fast/fried/junk foods, cut out dairy. Last 3 Encounter BP Readings: Date: BP: 01/31/2018 138/70 11/27/2017 102/63 05/29/2016 127/61 Lifestyle history: Nonsmoker # sodas/day: 0 # cups of coffee/day: 1-2 # alcoholic drinks/week: 3 +Addiction to sugar No h/o substance abuse PAST MEDICAL HISTORY Diagnosis Date - Anxiety state, unspecified occasional PAST SURGICAL HISTORY Procedure Laterality Date - APPENDECTOMY with hysterectomy - DELIVERY ONLY , low cervical x3 - PAST SURGICAL HISTORY OF 2006 left elbow surgery for ulnar neuropathy - PAST SURGICAL HISTORY OF 2007 excision of benign right breast lesion - REMOVAL OF TONSILS,<14 Y/O childhood Tonsillectomy - SEPTOPLASTY by patient's description - SINUS SURGERY PROC UNLISTED - TOTAL ABDOM HYSTERECTOMY 2005 Hysterectomy, DARRELL Current Outpatient Prescriptions on File Prior to Visit: cetirizine (ZYRTEC) 10 mg tablet Take 10 mg by mouth daily at bedtime. amoxicillin (AMOXIL) 875 mg tablet Take 1 tablet by mouth every 12 hours. ondansetron orally disintegrating (ZOFRAN ODT) 4 mg disintegrating tablet Take 1 tablet by mouth every 8 hours as needed. No current facility-administered medications on file prior to visit. Social History Marital status: Unknown Spouse name: Years of education: Number of children: Social History Main Topics Smoking status: Former Smoker Packs/day: 0.00 Years: 5.00 Types: Cigarettes Quit date: 05/29/1980 Smokeless tobacco: Never Used Comment: Didn't smoke much Alcohol use: Yes 1.5 oz/week Cans of Beer (12oz): 1 per week Drug use: No ROS: Positive for fatigue, SOB, acid reflux, gas, bloating, joint pain (hands, wrists, elbows, knees), brain fog, sleep issues, depression, anxiety, binge eating, high stress levels Negative for chest pain, HAs PHYSICAL EXAM: Vitals: BP 138/70 Ht 156.8 cm (5' 1.75) Wt 65.9 kg (145 lb 3.2 oz) BMI 26.77 kg/m? Gen: Alert, in no apparent distress. Looks about stated age. Heart: Regular rate and rhythm without murmurs, rubs, or gallops. Lungs: Clear to auscultation. Extremities: No deformities Psych: Oriented x 3, normal affect LABS: Component Latest Ref Rng AND Units 06/07/2013 09/04/2015 01/21/2016 Triglyceride 30 - 149 mg/dL 71 Cholesterol, Total 100 - 199 mg/dL 178 HDL Cholesterol >55 mg/dL 73 VLDL Cholesterol 6 - 40 mg/dL 14 LDL Cholesterol 60 - 129 mg/dL 91 Fasting Time hrs 0 TC:HDL Ratio 1.00 - 5.00 2.44 LDL:HDL Ratio 0.50 - 3.55 1.25 Non HDL Cholesterol 90 - 159 mg/dL 105 Hemoglobin A1C 4.0 - 6.0 % 5.7 Estimated Average Glucose mg/dL 117 Insulin 1 - 24 uU/mL 9.8 Vitamin B12 221 - 700 pg/mL 337 CRP 0.0 - 1.0 mg/dL 0.3 TSH 0.400 - 5.500 uU/mL 0.365 (L) Vitamin D 25 Hydroxy 31.0 - 80.0 ng/mL 36.6 ASSESSMENT and PLAN: Vera Goodman is a 62 year old female with a PMH of overweight who is here to address weight loss and develop a healthier relationship to food. During the next 6 weeks, Vera Goodman will work on the following goals: cut out sugar to improve arthritis in hands, cut out fast/fried/junk foods, cut out dairy. (R73.09) Impaired glucose metabolism (primary encounter diagnosis) Plan: HGB A1C, INSULIN ASSAY BLOOD, LIPID PANEL BASIC, COMP METABOLIC PANEL, C-REACTIVE ULTRA SEN, VITAMIN D 25 HYDROXY, TSH BLD, VITAMIN B6/PYRIDOXIN, HOMOCYSTEINE, LORazepam (ATIVAN) 0.5 mg tab (R79.89) Low TSH level Plan: HGB A1C, INSULIN ASSAY BLOOD, LIPID PANEL BASIC, COMP METABOLIC PANEL, C-REACTIVE ULTRA SEN, VITAMIN D 25 HYDROXY, TSH BLD, VITAMIN B6/PYRIDOXIN, HOMOCYSTEINE, LORazepam (ATIVAN) 0.5 mg tab No dx of hyperthyroidism. Repeat TSH. (E66.3) Overweight Comment: BMI 26 Plan: HGB A1C, INSULIN ASSAY BLOOD, LIPID PANEL BASIC, COMP METABOLIC PANEL, C-REACTIVE ULTRA SEN, VITAMIN D 25 HYDROXY, TSH BLD, VITAMIN B6/PYRIDOXIN, HOMOCYSTEINE, LORazepam (ATIVAN) 0.5 mg tab Start with 3 deep breaths before meals to slow down and eat mindfully. 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 (R53.83) Fatigue, unspecified type Plan: HGB A1C, INSULIN ASSAY BLOOD, LIPID PANEL BASIC, COMP METABOLIC PANEL, C-REACTIVE ULTRA SEN, VITAMIN D 25 HYDROXY, TSH BLD, VITAMIN B6/PYRIDOXIN, HOMOCYSTEINE, LORazepam (ATIVAN) 0.5 mg tab Check for vit deficiencies (M25.50) Polyarthralgia Plan: HGB A1C, INSULIN ASSAY BLOOD, LIPID PANEL BASIC, COMP METABOLIC PANEL, C-REACTIVE ULTRA SEN, VITAMIN D 25 HYDROXY, TSH BLD, VITAMIN B6/PYRIDOXIN, HOMOCYSTEINE, LORazepam (ATIVAN) 0.5 mg tab (R03.0) Prehypertension Comment: BP goal <120/80 Plan: HGB A1C, INSULIN ASSAY BLOOD, LIPID PANEL BASIC, COMP METABOLIC PANEL, C-REACTIVE ULTRA SEN, VITAMIN D 25 HYDROXY, TSH BLD, VITAMIN B6/PYRIDOXIN, HOMOCYSTEINE, LORazepam (ATIVAN) 0.5 mg tab Add hibiscus tea to smoothie recipe. Chart reviewed and labs ordered. DO KEILA Zhao POST Observed: 12/21/2017 Status: COMPLETED Source: [place] 8:43 AM CLINIC OTHER CAMPUS REPOSITORY HNO ID: [id number] Author: Ashley Turner Service: Anesthesiology Author Type: Anesthesiologist Type: Anesthesia PostOp Filed: 12/21/2017 8:44 AM Note Text: POST ANESTHESIA EVALUATION NOTE SERVICE DATE: 12/21/2017 SERVICE TIME: ,8:43 AM : 1955 Vitals: 12/21/17 07 Temp: 36.7 ?C (98.1 ?F) 12/21/17 0709 12/21/17 0820 BP: 123/66 (P) 113/61 12/21/17 0709 12/21/17 0820 Pulse: 81 (P) 88 12/21/17 0709 12/21/17 0820 Resp: 16 (P) 12 12/21/17 0709 12/21/17819 SpO2: 96% (P) 100% Validated Vital Signs: Yes POST ANES STATUS: No apparent anesthetic complications. The patient is appropriately hydrated with stable respiratory and cardiovascular status. Patient has safe and adequate airway control. The patient has appropriate pain relief and no significant post operative nausea or vomiting. The patient has achieved baseline mental status. Further assessment by Anesthesia Service: None Other Remarks: SIGNATURE: Ashley Turner MD PATIENT NAME: Vera Goodman DATE: December 21, 2017 TIME: 8:43 AM PAGER/CONTACT #: [id number] OPERATIVE NO Observed: 12/21/2017 Status: COMPLETED Source: [place] 8:15 AM [facility] REPOSITORY O ID: [id number] Author: Deanna Marques Service: Ophthalmology Author Type: Physician Type: Operative Report Filed: 12/21/2017 8:15 AM Note Text: OPERATIVE/PROCEDURE REPORT OPHTHAMOLOGY LOG ID: [id number] Surgery/Procedure Date: 12/21/2017 Incision/Procedure Start Time: 7:44 AM Incision Close/Procedure End Time: 8:13 AM Surgeon(s)/Proceduralist(s) and Cnc Supervisor(s): Surgeon(s) and Role: * Deanna Marques - Primary Procedure(s): Procedure(s) (LRB): BLEPHAROPLASTY UPPER MEDICALLY NECESSARY (Bilateral) Preoperative Diagnosis: Dermatochalasis of both upper eyelids [H02.831, H02.834] Postoperative Diagnosis: Dermatochalasis of both upper eyelids [H02.831, H02.834] Operative Indications: The patient has a history of upper eyelid skin blocking their vision resulting in a visually significant scotoma of greater than 25 degrees which improves on eyelid taping. The skin hangs over the lid margins resulting in limited peripheral vision and difficulty with driving, along with fatigue with reading. Based on their symptoms, the surgery was planned. Blurry vision, fatigue with reading Anesthesia: Monitored Anesthesia Care Procedure Details: The patient was brought into the operating room, and placed under adequate local anesthesia following demarcation of the upper eyelids in the sitting position. A skin incision was made with a #15 blade, and the skin muscle flap was dissected from the temporal to nasal direction using unipolar cautery. Bleeding was controlled with bipolar cautery. Middle and medial fat pads were debulked. Several dog-ear adjustments were made along the medial aspect of the upper lid to achieve a good contour to the crease. Once this was done, the incision was closed using a combination of interrupted and running suture of 6- 0 Prolene. A similar procedure was carried out on the opposite upper eyelid. Antibiotic ointment and ice compresses were placed over the eyes at the end of the case. The patient was returned to the recovery room in satisfactory condition. Estimated Blood Loss: Minimal unless noted here. Specimens: * No specimens in log * Implantable Devices: * No implants in log * Drains: None unless noted here. Complications: None I performed the entire procedure. SIGNATURE: Deanna Marques MD PATIENT NAME: Vera Goodman DATE: December 21, 2017 TIME: 8:15 AM PAGER/CONTACT #: HISTORY PHYSICAL Observed: 12/21/2017 Status: COMPLETED Source: [place] 7:39 AM [facility] OTHER CAMPUS REPOSITORY O ID: [id number] Author: Deanna Marques Service: Ophthalmology Author Type: Physician Type: HANDP Filed: 12/21/2017 7:39 AM Note Text: UPDATED HISTORY AND PHYSICAL EXAMINATION SERVICE DATE: 12/21/2017 SERVICE TIME: 7:39 AM PHYSICAL EXAM MUST BE COMPLETED ON ADMISSION The History and Physical (completed in the past 30 days) has been reviewed and the patient has been examined. The contents accurately reflect the patient's condition with the following additions or revisions since the HANDP was completed. Examination indicates no changes. This HANDP can be found in the scanned documents dated 6/13/18. SIGNATURE: Deanna Marques MD PATIENT NAME: Vera Goodman DATE: December 21, 2017 TIME: 7:39 AM PAGER: KEILA PREOP Observed: 12/21/2017 Status: COMPLETED Source: [place] 7:14 AM CLINIC OTHER CAMPUS REPOSITORY HNO ID: [id number] Author: Ashley Yue Service: Anesthesiology Author Type: Anesthesiologist Type: Anesthesia PreOp Filed: 12/21/2017 7:19 AM Note Text: ANESTHESIOLOGY DAY OF SURGERY NOTE SERVICE DATE: 12/21/2017 SERVICE TIME: 7:14 AM : 1955 Procedure(s) (LRB): BLEPHAROPLASTY UPPER MEDICALLY NECESSARY (Bilateral) Surgeon(s): Deanna Marques Estimated body mass index is 25.79 kg/m? as calculated from the following: Height as of this encounter: 157.5 cm (5' 2). Weight as of this encounter: 64 kg (141 lb). Most recent hematocrit and potassium results: Hematocrit 42.1 01/21/2016 Potassium 4.2 01/21/2016 ANES DOS/PREOP NOTE: Vitals: 12/21/17 0709 BP: 123/66 Pulse: 81 Resp: 16 Temp: 36.7 ?C (98.1 ?F) TempSrc: Oral SpO2: 96% Weight: 64 kg (141 lb) Height: 157.5 cm (5' 2) ACTIVE PROBLEM LIST Lesion of Ulnar Nerve Injury to Ulnar Nerve Hip Pain Gluteus Medius Or Minimus Syndrome Trochanteric Bursitis Shoulder Pain Pain of Left Upper Extremity PAST MEDICAL HISTORY Diagnosis Date - Anxiety state, unspecified occasional PAST SURGICAL HISTORY Procedure Laterality Date - APPENDECTOMY with hysterectomy - DELIVERY ONLY , low cervical x3 - PAST SURGICAL HISTORY OF 2006 left elbow surgery for ulnar neuropathy - PAST SURGICAL HISTORY OF 2007 excision of benign right breast lesion - REMOVAL OF TONSILS,<14 Y/O childhood Tonsillectomy - SEPTOPLASTY by patient's description - SINUS SURGERY PROC UNLISTED - TOTAL ABDOM HYSTERECTOMY 2005 Hysterectomy, DARRELL FAMILY HISTORY Problem Relation Age of Onset - Hypertension Mother - Cancer Father - Breast Cancer Sister - Cancer Brother Brain Social History: Social History Substance Use Topics - Smoking status: Former Smoker Years: 5.00 Types: Cigarettes Quit date: 05/29/1980 - Smokeless tobacco: Never Used Comment: Didn't smoke much - Alcohol use 1.5 oz/week 1 Cans of Beer (12oz) per week No current facility-administered medications on file prior to encounter. Current Outpatient Prescriptions on File Prior to Encounter: amoxicillin (AMOXIL) 875 mg tablet Take 1 tablet by mouth every 12 hours. ondansetron orally disintegrating (ZOFRAN ODT) 4 mg disintegrating tablet Take 1 tablet by mouth every 8 hours as needed. Current Facility-Administered Medications: lactated ringers infusion 30 mL/hr INTRAVENOUS CONTINUOUS Deanna Marques Allergies: ALLERGIES Allergen Reactions - Codeine Rash, Itching - Penicillins Other: See Comments Makes patient feel very ill. - Percocet [Oxycodone* Other: See Comments - Sulfa (Sulfonamide * Vomiting - Tramadol Itching - Vicodin [Hydrocodon* Itching DOS EXAM: Adequate NPO Status: Yes Anesthetic Risks, Benefits, Alternatives, Personnel and Consent Discussed: Yes Patient agrees to proceed: Yes Previous Anesthesia: No history of adverse event Airway Assessment: MP 2; Neck ROM: Full ROM without neurologic symptoms; Airway Evaluation: Small Mouth Opening Symptoms of Sleep Apnea: Age over 50 (62 year old) Dentition: Teeth intact Additional Physical Exam: Lungs: Patient health status unchanged since recent history and physical. See history and physical for exam findings. Cardiac: Patient health status unchanged since recent history and physical. See history and physical for exam findings. Additional Pertinent Findings: N/A Blood Products: Not anticipated for this procedure Anesthetic Plan: MAC with general as back up Anesthetic Monitoring: Standard ASA Monitors Pain Management Plan: Parenteral or Oral ASA Class: 2 Other Medical Problems: None Chronic Beta Ritesh medication administered within 24 hours: N/A I have interviewed and examined the patient. I have reviewed the medical record and/or the pre-anesthesia evaluation, pertinent labs, and test results. Significant changes in the patient's condition since the History and Physical, not otherwise documented in primary service progress notes: No This contains updated information obtained within 48 hours of Surgery/Procedure. SIGNATURE: Ashley Turner MD PATIENT NAME: Vera Goodman DATE: December 21, 2017 TIME: 7:14 AM CSN: [id number] OFFICE VISIT (INTERNAL Observed: 12/12/2017 Status: UNK Source: [facility]) 1:39 PM HOSPITALS REPOSITORY Chief Complaint here for pre-op visit History of Present Illness The 62 y/o female patient presents to the office for a pre- op visit for the eye procedure she is undergoing on 12/21/17. She reports no recent fevers, coughing, trouble breathing, abdominal pain, BM changes, black/bloody stools, or dysuria She reports current nasal congestion with mild associated sneezing over the past few weeks. She denies associated rhinorrhea or postnasal drip. She reports she has not been taking any medication for her allergies. She reports her mood has improved since her divorce which was finalized on December 03. [place] automated prescription reporting service report was reviewed and the patient is compliant. Active Problems Anxiety (300.00) (F41.9) Cough (786.2) (R05) Left-sided weakness (728.87) (R53.1) Palpitations (785.1) (R00.2) Sinusitis (473.9) (J32.9) Tracheobronchitis (490) (J40) Allergies Amoxicillin TABS Recorded By: Phillip Vásquez; 05/26/2013 10:05:47 PM Current Meds ZyrTEC Allergy 10 MG Oral Tablet; TAKE 1 TABLET AT BEDTIME; Therapy: [id number] to Recorded Rx By: Phillip Vásquez; Dispense: 0 Days ; #: Sufficient Tablet; Refill: 0; ARJUN = N; Record Vitals Vital Signs Recorded: 12Dec2017 01:19PM [id number] lb 4 oz BMI Cpphbcbaur67.63 BSA Calculated1.65 Physical Exam Head - palpation revealed mild tenderness over the maxillary sinuses bilaterally equally Nose - turbinates not erythematous or swollen no septal deviation noted Mouth - posterior pharynx is not erythematous or swollen. Tonsillar pillars appeared normal no exudates Neck - no lymphadenopathy. Lungs - clear to auscultation bilaterally Cardiac - rate normal, rhythm regular no murmurs no JVD Abdomen - soft nondistended normal active bowel sounds. Palpation revealed no tenderness or masses . Extremities-no peripheral edema Diagnoses/Problems Palpitations (785.1) (R00.2) Chest pain (786.50) (R07.9) Added by Problem List Migration; 2012-09-10; Moved to [facility] May 28 2013 9:08PM Provider Impressions Assessment: Nasal congestion and sneezing-- maybe secondary to allergic rhinitis Plan: I told the patient she can take Zyrtec milligrams by mouth daily when necessary and Flonase nasal spray 1 spray to each nostril twice a day when necessary. I will medically cleared the patient for planned eye surgery December 21. The patient should return for office visit when necessary Patient Discussion/Summary By signing my name below, I, Arden Hammer, attest that this documentation has been prepared under the direction and in the presence of Dr. Vásquez. All medical record entries made by the Arden were at my direction and personally dictated by me. I have reviewed the chart and agree that the record accurately reflects my personal performance of the h istory, physical exam, discussion and plan. (Dr. Vásquez ). End of Encounter Meds ZyrTEC Allergy 10 MG Oral Tablet; TAKE 1 TABLET AT BEDTIME; Therapy: [id number] to Recorded Signatures Electronically signed by : ARDEN Hammer; Dec 12 2017 1:34PM EST (Author) Electronically signed by : Phillip Vásquez MD; Dec 12 2017 1:39PM EST (Author) HOSP Observed: 11/27/2017 Status: COMPLETED Source: [place] 12:00 AM CLINIC OTHER CAMPUS REPOSITORY Patient:Vera Goodman MRN: <[id number]> Height:5' 2(1.575 m) Weight:141 lb (63.957 kg) Outpatient Medications as of 12/21/17: cetirizine (ZYRTEC) 10 mg tablet amoxicillin (AMOXIL) 875 mg tablet ondansetron orally disintegrating (ZOFRAN ODT) 4 mg disintegrating tablet Admission/Clinic Administered Medications as of 12/21/17: lactated ringers infusion Problem List: Lesion of ulnar nerve [G56.20] Injury to ulnar nerve [S54.00XA] Hip pain [M25.559] 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] Trochanteric bursitis [M70.60] Shoulder pain [M25.519] Pain of left upper extremity [M79.602] Allergies: Codeine Penicillins Percocet [Oxycodone-Acetaminophen] Sulfa (Sulfonamide Antibiotics) Tramadol Vicodin [Hydrocodone-Acetaminophen] Date Verified: 6/22/18 Lab Values No results within the last 30 days for the following basenames: K,HCT No progress notes entered within the past 30 days PROGRESS Observed: 09/27/2017 Status: COMPLETED Source: [place] 3:08 PM [facility] REPOSITORY HNO ID: [id number] Author: Justo Swenson Service: (none) Author Type: Occupational Therapist Type: Progress Notes Filed: 09/27/2017 3:36 PM Note Text: Episode Visit Count: Visit count could not be calculated. Make sure you are using a visit which is associated with an episode. No Data Recorded [facility] PHYSICAL CAPACITY EVALUATION Vera Rodriguez [id number] 09/27/2017 Feed Mixer Helper: Justo Swenson OT/Artie Referring Physician: Rell Ortega (Kevin),* DIAGNOSIS: Lesion of left ulnar nerve (primary encounter diagnosis) Pain of left upper extremity PURPOSE OF THIS EVALUATION : This evaluation was designed to Determine client's physical abilities and tolerances. The client was instructed in the purpose and contents of the evaluation before testing. The client was informed of her ability and responsibility to modify, limit, or refuse any part of the evaluation. Functional Capacity Evaluation completed today. See scanned document tab for complete detailed report. Summary cover letter included below. A Physical Capacity Evaluation was conducted on 09/27/2017 to determine Ms. Rodriguez's tolerance to perform work tasks. Reliability of Pain results obtained during testing indicate pain could have been considered while making functional decisions. Ms. Rodriguez demonstrated the ability to perform within the LIGHT Physical Demand Category based on the definitions developed by the [place] Department of Labor and outlined in the Dictionary of Occupational Titles. 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 Ms. Rodriguez lifted 25 pounds to below waist height. Ms. Rodriguez carried 20 pounds. Pushing abilities were evaluated and Ms. Rodriguez pulled 27.5 horizontal force pounds and pushed 27.5 horizontal force pounds respectively. Non-material handling testing indicates Ms. Rodriguez demonstrates an occasional tolerance for Static Balance, Firm Grasping, Repetitive Kneeling, Pinching, Simple Grasping and Squatting. Ms. Rodriguez demonstrated the ability to perform Above Shoulder Reach, Bending, Forward Reaching, Fine Coordination, Gross Coordination and Stair Climbing with frequent tolerance. Dynamic Balance, Sitting, Standing and Walking were demonstrated on a constant basis. 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 Musculoskeletal exam results as outlined in full Functional Capacity Evaluation report. Education: Learning preferences: Explanation Barriers: No barriers Learning/educational needs: Plan of care Education Provided: See Treatment Below Audience: Patient Method of education: Explanation, Demonstration and Performance Response: Verbalized understanding Billing: OT: Physical Performance Test (and doc) ([id number]): 1:1 time: 120 minutes (8 units: 113-127 mins) Total time: 150 minutes Justo Swenson OTR/L CNTHERAPY Observed: 09/27/2017 Status: COMPLETED Source: [place] 1:00 PM [facility] REPOSITORY OT/PT/Speech Visit (OTWCMN) VERA RODRIGUEZ ([id number]) 1955 F Date Time Provider Department 09/27/17 1:00 PM JUSTO SWENSON (OT) OTWCMN Date Time Provider Department Center 09/27/2017 1:00 PM [id number] SWENSON (O*OTWCM[facility] Reason for Visit: Functional Capacity Eval [0969] Patient Education [91] Primary Visit Diagnosis:Lesion of left ulnar nerve [G56.22] Other Visit Diagnosis:Pain of left upper extremity [M79.602] Allergies As of Date: 09/27/2017 Noted Allergy Reaction CODEINE 01/10/2007 2 - Rash 9 - Itching PENICILLINS 07/09/2014 14 - Other: See Comments Comments: Makes patient feel very ill. PERCOCET (OXYCODONE-ACETAMINOPHEN)06/15/2015 14 - Other: See Comments SULFA (SULFONAMIDE ANTIBIOTICS) 06/08/2008 11 - Vomiting TRAMADOL 04/08/2015 9 - Itching VICODIN (HYDROCODONE-ACETAMINOPHE*06/08/2008 9 - Itching Date Reviewed: 08/27/2017 Reviewed by: Jose Foy - Fully Assessed Prescriptions as of 09/27/2017 Sig: AMOXICILLIN 875 MG TABLET Take 1 tablet by mouth every * ONDANSETRON 4 MG DISINTEGRATI* Take 1 tablet by mouth every * Progress Notes: KARON Sandhu/Artie 09/27/2017 3:36 PM Signed Episode Visit Count: Visit count could not be calculated. Make sure you are using a visit which is associated with an episode. No Data Recorded [facility] PHYSICAL CAPACITY EVALUATION Vera Rodriguez [id number] 09/27/2017 Feed Mixer Helper: Justo Swenson OT/Artie Referring Physician: Rell Ortega (Kevin),* DIAGNOSIS: Lesion of left ulnar nerve (primary encounter diagnosis) Pain of left upper extremity PURPOSE OF THIS EVALUATION : This evaluation was designed to Determine client's physical abilities and tolerances. The client was instructed in the purpose and contents of the evaluation before testing. The client was informed of her ability and responsibility to modify, limit, or refuse any part of the evaluation. Functional Capacity Evaluation completed today. See scanned document tab for complete detailed report. Summary cover letter included below. A Physical Capacity Evaluation was conducted on 09/27/2017 to determine Ms. Rodriguez's tolerance to perform work tasks. Reliability of Pain results obtained during testing indicate pain could have been considered while making functional decisions. Ms. Rodriguez demonstrated the ability to perform within the LIGHT Physical Demand Category based on the definitions developed by the [place] Department of Labor and outlined in the Dictionary of Occupational Titles. 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 Ms. Rodriguez lifted 25 pounds to below waist height. Ms. Rodriguez carried 20 pounds. Pushing abilities were evaluated and Ms. Rodriguez pulled 27.5 horizontal force pounds and pushed 27.5 horizontal force pounds respectively. Non-material handling testing indicates Ms. Rodriguez demonstrates an occasional tolerance for Static Balance, Firm Grasping, Repetitive Kneeling, Pinching, Simple Grasping and Squatting. Ms. Rodriguez demonstrated the ability to perform Above Shoulder Reach, Bending, Forward Reaching, Fine Coordination, Gross Coordination and Stair Climbing with frequent tolerance. Dynamic Balance, Sitting, Standing and Walking were demonstrated on a constant basis. 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 Musculoskeletal exam results as outlined in full Functional Capacity Evaluation report. Education: Learning preferences: Explanation Barriers: No barriers Learning/educational needs: Plan of care Education Provided: See Treatment Below Audience: Patient Method of education: Explanation, Demonstration and Performance Response: Verbalized understanding Billing: OT: Physical Performance Test (and doc) (49135): 1:1 time: 120 minutes (8 units: 113-127 mins) Total time: 150 minutes Justo Swenson OTR/Artie PROGRESS Observed: 08/27/2017 Status: COMPLETED Source: [place] 3:59 PM [facility] [place] REPOSITORY HNO ID: [id number] Author: Jose Foy Service: (none) Author Type: Physician Type: Progress Notes Filed: 08/27/2017 4:03 PM Note Text: Follow up: Artie ZAMORA HPI: Ms. Rodriguez is following up for multiple revision L ulnar nerve. Last visit we provided strengthening. The current symptoms wax and wane based on use. 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 Lots of stress with currently going through a divorce. PAST MEDICAL HISTORY Diagnosis Date - Anxiety state, unspecified occasional Current Outpatient Prescriptions: amoxicillin (AMOXIL) 875 mg tablet Take 1 tablet by mouth every 12 hours. Disp: 20 tablet Rfl: 0 ondansetron orally disintegrating (ZOFRAN ODT) 4 mg disintegrating tablet Take 1 tablet by mouth every 8 hours as needed. Disp: 20 tablet Rfl: 0 No current facility-administered medications for this visit. ALLERGIES Allergen Reactions - Codeine Rash, Itching - Penicillins Other: See Comments Makes patient feel very ill. - Percocet [Oxycodone* Other: See Comments - Sulfa (Sulfonamide * Vomiting - Tramadol Itching - Vicodin [Hydrocodon* Itching All medical history, medications and allergies have been discussed with the patient today. ROS: REVIEW OF SYMPTOMS: Constitutional: patient denies any recent fever or significant change in weight Gastrointestinal: patient denies any current abdominal discomfort Musculoskeletal: as noted in the HPI Neurologic: as noted in the HPI SOCIAL HISTORY: Tobacco Use: for 5 years. Quit 05/29/1980. Types: Cigarettes (Didn't smoke much) Patient reports no change in past medical AND surgical history, medications, allergies, social history, family history and review of systems since last visit. Physical Examination: Ms.. Rodriguez is a healthy appearing female in no acute distress. Bilateral upper limbs have equal and intact peripheral pulses. Skin does not demonstrate any rashes or lesions. Well healed incision. Sensory and motor loss in ulnar nerve dist at baseline. Less hypersensitivity. Assessment: Lesion of left ulnar nerve (primary encounter diagnosis) Plan: I discussed with Ms.. Rodriguez the diagnosis and different treatment options. She would like to pursue an FCE to evaluate her L UE function. She wishes to see Dr. Castro to evaluate if her cervical spine could be an issue. We discussed that further surgery on her ulnar nerve is not indicated or advised. RTC prn. Jose Foy MD August 27, 2017 3:59 PM ALLERGIES ALLERGIES DATE TYPE / CODE NAME / CODE REACTION SEVERITY SOURCE 06/15/2015 DRUG/956851 OXYCODONE-ACETAMIN OTHER: SEE C [facility] 003(SNOMED OPHEN [address] [place] [address]) Repository 04/08/2015 DRUG TRAMADOL ITCHING [facility] INGREDI/419 [facility] 066221(SNOM Repository ED CT) 07/09/2014 Drug PENICILLINS OTHER: SEE C [facility] Class/96229 [address] [place] 1003(SNOMED Repository CT) 06/08/2008 Drug SULFA (SULFONAMIDE Vomiting [facility] Class/57025 ANTIBIOTICS) [place] 1003(SNOMED Repository CT) 06/08/2008 DRUG/499063 HYDROCODONE-ACETAM ITCHING [facility] 003(SNOMED INOPHEN [address] [place] [address]) Repository 01/10/2007 DRUG CODEINE RASH [facility] INGREDI/419 [facility] 755983(SNOM Repository ED CT) ENCOUNTERS ENCOUNTERS ADMIT/DISCHARGE ACCOUNT ADMITTING ENCOUNTER LOCATION SOURCE NUMBER CLASS 07/17/2018 [id number] Ambulatory [facility] ing:WOBLAB Repository 02/21/2018/02/23/20 [id number] Ambulatory [address] Repository 02/06/2018 [id number] Ambulatory [facility] Repository 02/04/2018/02/06/20 [id number] Ambulatory [address] Repository 01/31/2018/02/02/20 [id number] Ambulatory [address] Repository 12/21/2017/12/22/19 [id number] LOCASTRO, Ambulatory [address] Repository 09/27/2017/09/28/19 [id number] Ambulatory [address] Repository 08/27/2017/08/28/19 [id number] Ambulatory [address] Repository PAYERS PAYERS ENCOUNTER GUARANTOR PAYER SUBSCRIBER SOURCE 07/17/2018 VERABELEN GOODMAN534 Primary VERA DENISEB: [address] Insurance:MEDICAL [id number] [facility] [address]Yza: (330) Number: Repository [phone] () [id number] Date:[id number] [address] [place] [id number]: 07/17/2018 Secondary NOT GIVENUNK Marcelino Insurance:SELF PAY [facility] Number: Effective Repository Date:2018-07-17
== END ==
LOC: WOBLAB 10:11
PROVIDERS: Visit Provider Obstetrics & Gynecology
DX: Z78.0 Asymptomatic menopausal state (principal)
CPT/HCPCS: 36415; 82533; 82627; 82670; 83036; 84144; 84403; 84439; 84443; 84481; 82626

== ENCOUNTER → 2019-06-23 16:24 | Outpatient (CLI) | payer OTHER, SELFPAY ==
[2019-06-23 19:58] LABS: Chlamydia Trachomatis by PCR Negative (Negative); Neisserai gonorrhoeae by PCR Negative (Negative); Probe Check PASS; Sample Adequacy Control PASS; Specimen Processing Control PASS
== END ==
PROVIDERS: Visit Provider Obstetrics & Gynecology
DX: Z11.3 Encounter for screening for infections with a predominantly sexual mode of transmission (principal)
CPT/HCPCS: 87491; 87591

== ENCOUNTER → 2022-05-06 | Outpatient (CLI) | payer OTHER, SELFPAY ==
[2022-05-14 08:08] LABS: Clam <0.10 kU/L (Class 0); Codfish <0.10 kU/L (Class 0); Corn <0.10 kU/L (Class 0); Egg, White <0.10 kU/L (Class 0); Milk (Cow) <0.10 kU/L (Class 0); Peanut <0.10 kU/L (Class 0); SCALLOP <0.10 kU/L (Class 0); Shrimp 0.26 kU/L (Class 0/I); Soybean <0.10 kU/L (Class 0); Walnut, (Food) <0.10 kU/L (Class 0); Wheat <0.10 kU/L (Class 0)
[2022-05-14 10:33] LABS: SESAME SEED <0.10 kU/L (Class 0)
== END | disposition home or self-care (01) ==
LOC: LAB 10:24
PROVIDERS: Visit Provider Otolaryngology
DX: T78.40XA Allergy, unspecified, initial encounter (principal); X58.XXXA Exposure to other specified factors, initial encounter
CPT/HCPCS: 36415; 86003

== ENCOUNTER 2022-05-17 17:10 | Outpatient (CLI) | payer OTHER, SELFPAY ==
--- NOTE | 2022-05-17 17:14 | CT_ITS ---
EXAM: CT MAXILLOFACIAL SINUSES WITHOUT INTRAVENOUS CONTRAST CLINICAL INDICATION: CHRONIC SINUSITIS/ NASAL POLYP TECHNIQUE: Helically acquired images were obtained of the maxillofacial sinuses without intravenous contrast. CTDIvol = ( 33.06 ) mGy, DLP = ( 788.40 ) mGycm This CT exam was performed using one or more of the following dose reduction techniques: automated exposure control, adjustment of the mA and/or kV according to patient size, and/or use of iterative reconstruction technique. This report was created using [employer] report Full[employer] technology. COMPARISON: None. FINDINGS: MAXILLARY SINUSES: Clear. Ostiomeatal complexes are normally formed. SPHENOID SINUSES: Clear. FRONTAL SINUSES: Clear. ETHMOID AIR CELLS: Clear. NASAL CAVITY/SEPTUM: Nasal septum is midline. Nasal turbinates are unremarkable. MASTOID AIR CELLS: Mild mucosal thickening with no air-fluid levels involving the paranasal sinuses. No large polyps are seen. Mastoid air cells and middle ears are clear. BONES/JOINTS: Anterior cranial fossa is unremarkable. ORBITS: Unremarkable. DENTAL: Unremarkable as visualized. No periodontal osseous erosion. CT/Sinus/Facial Bone IMPRESSION: No large polyps are identified involving the paranasal sinuses. No acute sinusitis. Electronically Signed: Castillo Gay MD at 18:31 EST Reading Location ID and State: [facility] [place] / [place] Tel , Service support ,
== END 2022-05-17 23:59 | disposition home or self-care (01) ==
LOC: CT 17:11
PROVIDERS: Visit Provider Otolaryngology
DX: J32.9 Chronic sinusitis, unspecified (principal); J33.9 Nasal polyp, unspecified
CPT/HCPCS: 70486

== ENCOUNTER 2022-06-06 16:22 | Outpatient (CLI) | payer OTHER, SELFPAY ==
[2022-06-06 17:05] LABS: Hematocrit 42.6 % (37-47); Hemoglobin 13.7 g/dL (12.0-15.0); Mean Corp Hgb Conc 32.2 g/dL (32-36); Mean Corpuscular Hgb 29.1 pg (27.0-32.0); Mean Corpuscular Volume 90.6 fL (81-99); Platelet Count 258 K/mm3 (150-450); RBC Distribution Width CV 13.7 % (11.6-14.6); RBC Distribution Width SD 46.1 fl (35.1-43.9); White Blood Count 7.1 K/mm3 (4.4-11.0)
[2022-06-06 17:48] LABS: Vitamin D,25 Hydroxy 25.6 ng/mL
[2022-06-06 18:20] LABS: Follicle Stimulating Hormone 66.6 mIU/mL; Luteinizing Hormone 25.6 mIU/mL; T4 Free Direct 0.96 ng/dL (0.76-1.46); Thyroid Stim Hormone (TSH) 0.62 uIU/mL (0.358-3.74)
[2022-06-06 18:40] LABS: Hemoglobin A1c 5.9 % (3.8-5.6)
== END 2022-06-06 23:59 | disposition home or self-care (01) ==
LOC: WOBLAB 16:24
PROVIDERS: Visit Provider Student in an Organized Health Care Education/Training Program
DX: Z01.419 Encounter for gynecological examination (general) (routine) without abnormal findings (principal); N39.0 Urinary tract infection, site not specified
CPT/HCPCS: 36415; 82306; 83001; 83002; 83036; 84439; 84443; 85027; 87086